=== PATIENT | female | born 1970 | race Caucasian/White ===

== ENCOUNTER → 2017-03-08 | Outpatient (CLI) | payer BC ==
--- NOTE | 2017-03-08 22:36 | XR ---
EXAMINATION TYPE: XR chest 2V DATE OF EXAM: 03/08/2017 5:15 PM COMPARISON: 03/27/2010 HISTORY: 47 year-old female shortness of breath for a couple weeks TECHNIQUE: Frontal and lateral views FINDINGS: The cardiomediastinal silhouette, aorta, and pulmonary vasculature are within normal limits. There is some strandy atelectasis at the left base. Otherwise, lungs and pleural spaces are clear. IMPRESSION: Some strandy atelectasis at the left base. Otherwise, no acute cardiopulmonary process.
== END | disposition home or self-care (01) ==
LOC: RADXRMAIN 17:06
PROVIDERS: ATTEND Family Medicine
DX: J98.11 Atelectasis (principal); R06.02 Shortness of breath
CPT/HCPCS: 71020

== ENCOUNTER 2017-03-11 18:38 | Observation (INO) | payer BC ==
[2017-03-11] MEDS ORDERED: NITROGLYCERIN OINT 1 INCH/GM PACKET TOPICAL STA (19:02)
[2017-03-11] MEDS ORDERED: RX INFO: IV CONTRAST WAS GIVEN 1 EACH MISC MISCELLANE PRN (19:02)
[2017-03-11] MEDS ORDERED: ASPIRIN 81 MG CHEW PO STA (19:02)
--- NOTE | 2017-03-11 19:05 | ED ---
General Adult HPI - General Chief complaint: Shortness of Breath Stated complaint: Dyspnea and chest Time Seen by Provider: 03/11/17 18:54 Source: patient, RN notes reviewed Mode of arrival: wheelchair Limitations: no limitations - History of Present Illness Initial comments: Patient is a pleasant 47-year-old female presenting to the emergency department complaining of chest discomfort. Onset was around 2:00. Discomfort has somewhat improved and is currently rated 5/10. Patient has been expressing exertional dyspnea somewhat progressive over the last several months. Patient is currently taking testosterone replacement. Patient did see her doctor Sunday and had a chest x-ray done. She was concerned about possible pulmonary embolism and ordered computed tomography scan that is scheduled for tomorrow. No leg pain or leg swelling. No nausea or diaphoresis. Discomfort is left upper chest with radiation towards the neck. - Related Data Home Medications Medication Instructions Recorded Confirmed Cyanocobalamin [Vitamin B-12 1,000 mcg SQ Q14D 03/11/17 03/11/17 Injection] Cyanocobalamin [Vitamin B-12] 500 mcg PO DAILY 03/11/17 03/11/17 Allergies Allergy/AdvReac Type Severity Reaction Status Date / Time propoxyphene napsylate Allergy Rash/Hives Verified 03/11/17 19:36 [From Jean] Review of Systems ROS Statement: Those systems with pertinent positive or pertinent negative responses have been documented in the HPI. ROS Other: All systems not noted in ROS Statement are negative. Constitutional: Denies: fever Eyes: Denies: eye pain ENT: Denies: ear pain Respiratory: Reports: dyspnea. Denies: cough Cardiovascular: Reports: chest pain Endocrine: Reports: fatigue Gastrointestinal: Denies: abdominal pain Genitourinary: Denies: dysuria Musculoskeletal: Denies: back pain Skin: Denies: rash Neurological: Denies: headache Past Medical History Past Medical History: Pulmonary Embolus (PE) Additional Past Medical History / Comment(s): migraines, hiatal hernia, hx ulcer , dx round worm 10/2014, diarrhea, polycystic kidney disease History of Any Multi-Drug Resistant Organisms: MRSA Date of last positivie culture/infection: 11/2012 MDRO Source:: leg Past Surgical History: Hernia Repair Additional Past Surgical History / Comment(s): admoninoplasty, left oophorectomy and salpingectomy, Past Anesthesia/Blood Transfusion Reactions: Family Hisory of Malignant Hyperthermia, Motion Sickness Additional Past Anesthesia/Blood Transfusion Reaction / Comment(s): father- malignant hyperthermia. pt states she was tested [place] but test was not conclusive. Past Psychological History: No Psychological Hx Reported Smoking Status: Never smoker Past Alcohol Use History: Occasional Past Drug Use History: None Reported General Exam Limitations: no limitations General appearance: alert, in no apparent distress Head exam: Present: atraumatic Eye exam: Present: normal appearance, PERRL ENT exam: Present: normal oropharynx Neck exam: Present: normal inspection Respiratory exam: Present: normal lung sounds bilaterally. Absent: chest wall tenderness Cardiovascular Exam: Present: regular rate, normal rhythm Expanded Peripheral pulses: 2+: Radial (R), Radial (L), Dorsalis Pedis (R), Dorsalis Pedis (L) GI/Abdominal exam: Present: soft. Absent: tenderness Extremities exam: Present: normal inspection. Absent: pedal edema, calf tenderness Neurological exam: Present: alert Psychiatric exam: Present: normal affect, normal mood Skin exam: Absent: rash Course Vital Signs 03/11/17 03/11/17 03/11/17 18:41 18:47 18:50 Temperature 98.7 F Pulse Rate 106 H 91 Respiratory 22 18 18 Rate Blood Pressure 179/88 141/63 O2 Sat by Pulse 99 100 Oximetry 03/11/17 03/11/17 19:50 20:20 Temperature Pulse Rate 94 82 Respiratory 18 18 Rate Blood Pressure 134/88 142/73 O2 Sat by Pulse 96 97 Oximetry EKG Findings - EKG Comments: EKG Findings:: Sinus tachycardia 101. ND 160. QRS 88. QT 350. QTC 453. Normal axis. Normal QRS. Normal ST-T. Medical Decision Making - Medical Decision Making Patient reevaluated and resting comfortably in bed. Patient updated on results and plan. Case was discussed in detail with practitioner Heidi ureña, who will admit for Dr. watkins, covering for Dr. alonzo, who admits for Dr. Loo. - Lab Data Result diagrams: 03/11/17 19:00 03/11/17 19:00 Lab Results 03/11/17 03/11/17 03/11/17 Range/Units 19:00 19:00 19:00 WBC 6.8 (3.8-10.6) k/uL RBC 4.90 (3.80-5.40) m/uL Hgb 14.0 (11.4-16.0) gm/dL Hct 43.5 (34.0-46.0) % MCV 88.7 (80.0-100.0) fL MCH 28.6 (25.0-35.0) pg MCHC 32.3 (31.0-37.0) g/dL RDW 14.4 (11.5-15.5) % Plt Count 291 (150-450) k/uL Neutrophils % 61 % Lymphocytes % 25 % Monocytes % 7 % Eosinophils % 3 % Basophils % 1 % Neutrophils # 4.1 (1.3-7.7) k/uL Lymphocytes # 1.7 (1.0-4.8) k/uL Monocytes # 0.5 (0-1.0) k/uL Eosinophils # 0.2 (0-0.7) k/uL Basophils # 0.1 (0-0.2) k/uL PT (9.0-12.0) sec INR (<1.1) APTT (22.0-30.0) sec Sodium 141 (137-145) mmol/L Potassium 4.0 (3.5-5.1) mmol/L Chloride 107 (98-107) mmol/L Carbon Dioxide 24 (22-30) mmol/L Anion Gap 10 mmol/L BUN 16 (7-17) mg/dL Creatinine 0.90 (0.52-1.04) mg/dL Est GFR (MDRD) Af Amer >60 (>60 ml/min/1.73 sqM) Est GFR (MDRD) Non-Af >60 (>60 ml/min/1.73 sqM) Glucose 91 (74-99) mg/dL Calcium 9.9 (8.4-10.2) mg/dL Magnesium 1.8 (1.6-2.3) mg/dL Total Bilirubin 0.2 (0.2-1.3) mg/dL AST 21 (14-36) U/L ALT 27 (9-52) U/L Alkaline Phosphatase 68 (38-126) U/L Total Creatine Kinase 88 (30-135) U/L CK-MB (CK-2) 0.7 (0.0-2.4) ng/mL CK-MB (CK-2) Rel Index 0.8 Troponin I <0.012 (0.000-0.034) ng/mL NT-Pro-B Natriuret Pep pg/mL Total Protein 7.3 (6.3-8.2) g/dL Albumin 4.2 (3.5-5.0) g/dL 03/11/17 03/11/17 Range/Units 19:00 19:00 WBC (3.8-10.6) k/uL RBC (3.80-5.40) m/uL Hgb (11.4-16.0) gm/dL Hct (34.0-46.0) % MCV (80.0-100.0) fL MCH (25.0-35.0) pg MCHC (31.0-37.0) g/dL RDW (11.5-15.5) % Plt Count (150-450) k/uL Neutrophils % % Lymphocytes % % Monocytes % % Eosinophils % % Basophils % % Neutrophils # (1.3-7.7) k/uL Lymphocytes # (1.0-4.8) k/uL Monocytes # (0-1.0) k/uL Eosinophils # (0-0.7) k/uL Basophils # (0-0.2) k/uL PT 10.1 (9.0-12.0) sec INR 1.0 (<1.1) APTT 24.6 (22.0-30.0) sec Sodium (137-145) mmol/L Potassium (3.5-5.1) mmol/L Chloride (98-107) mmol/L Carbon Dioxide (22-30) mmol/L Anion Gap mmol/L BUN (7-17) mg/dL Creatinine (0.52-1.04) mg/dL Est GFR (MDRD) Af Amer (>60 ml/min/1.73 sqM) Est GFR (MDRD) Non-Af (>60 ml/min/1.73 sqM) Glucose (74-99) mg/dL Calcium (8.4-10.2) mg/dL Magnesium (1.6-2.3) mg/dL Total Bilirubin (0.2-1.3) mg/dL AST (14-36) U/L ALT (9-52) U/L Alkaline Phosphatase (38-126) U/L Total Creatine Kinase (30-135) U/L CK-MB (CK-2) (0.0-2.4) ng/mL CK-MB (CK-2) Rel Index Troponin I (0.000-0.034) ng/mL NT-Pro-B Natriuret Pep <11 pg/mL Total Protein (6.3-8.2) g/dL Albumin (3.5-5.0) g/dL - Radiology Data Radiology results: report reviewed (Computed tomography scan shows no evidence of pulmonary embolism on a somewhat limited study.) Disposition Clinical Impression: Exertional dyspnea, Chest pain Disposition: ADMITTED IP TO THIS HOSP
[2017-03-11 19:19] LABS: Basophils # (A) 0.1 k/uL (0-0.2); Basophils % (A) 1 %; CH 28.6; CHCM 32.4; Eosinophils # (A) 0.2 k/uL (0-0.7); Eosinophils % (A) 3 %; HCT 43.5 % (34.0-46.0); HDW 2.47; Luc # (Auto) 0.17; Luc % (Auto) 3; Lymphocytes # (A) 1.7 k/uL (1.0-4.8); Lymphocytes % (A) 25 %; MCH 28.6 pg (25.0-35.0); MCHC 32.3 g/dL (31.0-37.0); MCV 88.7 fL (80.0-100.0); Mean Platelet Volume 6.8; Monocytes # (A) 0.5 k/uL (0-1.0); Monocytes % (A) 7 %; Neutrophils # (A) 4.1 k/uL (1.3-7.7); Neutrophils % (A) 61 %; RDW 14.4 % (11.5-15.5); WBC 6.8 k/uL (3.8-10.6); WBC (Perox) 6.75
[2017-03-11 19:30] LABS: ALT 27 U/L (9-52); AST 21 U/L (14-36); Alkaline Phosphatase 68 U/L (38-126); Anion Gap 10 mmol/L; Blood Urea Nitrogen 16 mg/dL (7-17); Calcium 9.9 mg/dL (8.4-10.2); Carbon Dioxide 24 mmol/L (22-30); Chloride 107 mmol/L (98-107); Glucose 91 mg/dL (74-99); Magnesium 1.8 mg/dL (1.6-2.3); Non-African American GFR(MDRD) >60 (>60 ml/min/1.73 sqM); Sodium 141 mmol/L (137-145); Total Bilirubin 0.2 mg/dL (0.2-1.3); Total Protein 7.3 g/dL (6.3-8.2)
[2017-03-11 19:46] LABS: Creatine Kinase 88 U/L (30-135)
[2017-03-11 20:00] LABS: Creatine Kinase MB 0.7 ng/mL (0.0-2.4); Partial Thromboplastin Time 24.6 sec (22.0-30.0); Prothrombin Time 10.1 sec (9.0-12.0); Troponin I <0.012 ng/mL (0.000-0.034)
--- NOTE | 2017-03-11 20:29 | CT ---
EXAMINATION TYPE: CT angio chest DATE OF EXAM: 03/11/2017 8:18 PM COMPARISON: NONE HISTORY: 47-year-old female with shortness of breath. TECHNIQUE: Contiguous axial scanning of the chest performed with IV Contrast, patient injected with 1 00 mL of Omnipaque 350. Coronal/sagittal MIP reconstructions performed. CT DLP: 595.50 mGycm Automated exposure control for dose reduction was used. FINDINGS: The heart is normal size with trace anterior pericardial fluid. Aorta is normal caliber with conventional arch vessel branching anatomy. No thoracic lymphadenopathy. There is somewhat suboptimal opacification of the pulmonary arterial system well without any visualiz ed pulmonary embolus. Evaluation of the lungs shows mild strandy dependent atelectasis. No consolidation or pleural effusio n. Visualized upper abdomen shows a subcentimeter hypodensity lateral left kidney too small for accurate CT characterization by was also present back in 2010 suggesting a cyst. Bones: No osseous destructive process. IMPRESSION: 1. SOMEWHAT LIMITED CONTRAST OPACIFICATION. NO CLEAR EVIDENCE FOR PULMONARY EMBOLUS. 2. NO ACUTE PULMONARY PROCESS.
[2017-03-11 21:49] VITALS: RESP 16
[2017-03-12] MEDS: NITROGLYCERIN OINT 1 INCH/GM PACKET TOPICAL SCH ×3 (00:03→14:17)
[2017-03-12 01:16] LABS: Creatine Kinase 76 U/L (30-135)
[2017-03-12 01:30] LABS: Creatine Kinase MB 0.6 ng/mL (0.0-2.4); Troponin I <0.012 ng/mL (0.000-0.034)
[2017-03-12 08:23] LABS: Cholesterol 195 mg/dL (<200); HDL Cholesterol 64 mg/dL (40-60); Triglycerides 111 mg/dL (<150)
--- NOTE | 2017-03-12 08:41 | P.CRDCN ---
History of Present Illness Consult date: 03/12/17 Chief complaint: Chest pressure History of present illness: This is a pleasant 47-year-old female patient with no significant past medical history presented to the emergency room complaining of chest discomfort. She describes 3 weeks history of intermittent chest discomfort and chest pain. Does not seems to be anginal. The cardiac enzymes came in to be unremarkable. The EKG showed sinus rhythm without any ischemic changes. The CTA of the chest did not show any evidence of PE. I recommended proceeding with a stress test and echocardiogram and follow-up with the patient. Past Medical History Past Medical History: Pulmonary Embolus (PE) Additional Past Medical History / Comment(s): migraines, hiatal hernia, hx ulcer , dx round worm 10/2014, diarrhea, polycystic kidney disease History of Any Multi-Drug Resistant Organisms: MRSA Date of last positivie culture/infection: 11/2012 MDRO Source:: leg Past Surgical History: Hernia Repair Additional Past Surgical History / Comment(s): admoninoplasty, left oophorectomy and salpingectomy, Past Anesthesia/Blood Transfusion Reactions: Family Hisory of Malignant Hyperthermia, Motion Sickness Additional Past Anesthesia/Blood Transfusion Reaction / Comment(s): father- malignant hyperthermia. pt states she was tested [place] but test was not conclusive. Past Psychological History: No Psychological Hx Reported Smoking Status: Never smoker Past Alcohol Use History: Occasional Past Drug Use History: None Reported - Past Family History Father Additional Family Medical History / Comment(s): cardiac cath with stents Mother Additional Family Medical History / Comment(s): ovarian cancer with hysto Sister(s) Family Medical History: No Reported History Medications and Allergies Home Medications Medication Instructions Recorded Confirmed Type Cyanocobalamin [Vitamin B-12 1,000 mcg SQ Q14D 03/11/17 03/11/17 History Injection] Cyanocobalamin [Vitamin B-12] 1,000 mcg PO DAILY 03/11/17 03/11/17 History Allergies Allergy/AdvReac Type Severity Reaction Status Date / Time propoxyphene napsylate Allergy Rash/Hives Verified 03/11/17 22:17 [From Shari-Anne] Physical Exam Vitals: Vital Signs Temp Pulse Pulse Resp BP BP Pulse Ox 03/12/17 08:35 95 03/12/17 07:26 98 F 80 16 103/66 96 03/12/17 04:00 16 03/12/17 03:52 98.3 F 80 16 107/63 96 03/12/17 00:00 16 03/11/17 23:40 97.8 F 69 16 118/70 95 03/11/17 22:44 16 03/11/17 21:40 98.2 F 76 16 133/76 97 03/11/17 21:33 97.0 F L 80 18 129/74 96 Intake and Output 03/11/17 03/12/17 03/12/17 22:59 06:59 14:59 Other: # Voids 1 1 - Constitutional General appearance: no acute distress - Respiratory Respiratory: bilateral: CTA - Cardiovascular Rhythm: regular Heart sounds: normal: S1, S2 Results 03/11/17 19:00 03/11/17 19:00 Cardiac Enzymes 03/12/17 Range/Units 00:26 CK-MB (CK-2) 0.6 (0.0-2.4) ng/mL Troponin I <0.012 (0.000-0.034) ng/mL Lipids 03/12/17 Range/Units 07:12 Triglycerides 111 (<150) mg/dL Cholesterol 195 (<200) mg/dL HDL Cholesterol 64 H (40-60) mg/dL Current Medications Generic Name Dose Route Start Last Admin Trade Name Brayanq PRN Reason Stop Dose Admin Aspirin 325 mg 03/12/17 09:00 Aspirin PO DAILY JOSUÉ Miscellaneous Information 1 each 03/11/17 19:02 Rx Info: Iv Contrast Was Given MISCELLANE 03/13/17 19:02 DAILY PRN Per Protocol Nitroglycerin 1 inch 03/12/17 00:00 03/12/17 05:50 Nitro-Bid Oint TOPICAL Not Given Q6HR JOSUÉ Sodium Chloride 10 ml 03/12/17 09:00 Saline Flush IV BID JOSUÉ Intake and Output 03/11/17 03/12/17 03/12/17 22:59 06:59 14:59 Other: # Voids 1 1 Assessment and Plan Plan: Assessment #1 chest discomfort Plan I'll proceed with an echocardiogram I will obtain a stress test as well
[2017-03-12 08:43] LABS: Creatine Kinase 69 U/L (30-135)
[2017-03-12 08:55] LABS: Creatine Kinase MB 0.5 ng/mL (0.0-2.4); Troponin I <0.012 ng/mL (0.000-0.034)
[2017-03-12] MEDS ORDERED: ASPIRIN 325 MG TAB PO SCH (09:00)
[2017-03-12] MEDS ORDERED: ACETAMINOPHEN TAB 325 MG TAB PO PRN (11:31)
[2017-03-12 11:49] VITALS: BP 117/65; PULSE 84; TEMP 99
--- NOTE | 2017-03-12 11:59 | ECHOF ---
Referral Reason:Exertional dyspnea MEASUREMENTS -------- HEIGHT: 167.6 cm WEIGHT: 86.2 kg BP: 117/50 RVIDd: 3.3 cm (< 3.3) IVSd: 0.9 cm (0.6 - 1.1) LVIDd: 3.6 cm (3.9 - 5.3) LVPWd: 1.0 cm (0.6 - 1.1) IVSs: 1.5 cm LVIDs: 2.0 cm LVPWs: 1.6 cm LA Diam: 2.8 cm (2.7 - 3.8) Ao Diam: 2.7 cm (2.0 - 3.7) AV Cusp: 2.0 cm (1.5 - 2.6) MV EXCURSION: 14.664 mm (> 18.000) MV EF SLOPE: 70 mm/s (70 - 150) EPSS: 0.7 cm MV E Varghese: 0.77 m/s MV DecT: 305 ms MV A Varghese: 0.64 m/s MV E/A Ratio: 1.20 RAP: 5.00 mmHg RVSP: 23.73 mmHg FINDINGS -------- Sinus rhythm. This was a technically good study. The left ventricular size is normal. Left ventricular wall thickness is normal. Overall left ventricular systolic function is normal with, an EF between 60 - 65 %. The right ventricle is mildly enlarged. The left atrium is normal in size. The right atrium is normal in size. The aortic valve is trileaflet and appears structurally normal. The mitral valve is normal. Mild tricuspid regurgitation present. Right ventricular systolic pressure is normal at < 35 mmHg. The pulmonic valve is normal. The aortic root size is normal. The pericardium is normal. CONCLUSIONS -------- 1. Sinus rhythm. 2. The mitral valve is normal. 3. Mild tricuspid regurgitation present. 4. Right ventricular systolic pressure is normal at < 35 mmHg. 5. The pulmonic valve is normal. 6. The aortic root size is normal. 7. The pericardium is normal. 8. This was a technically good study. 9. The left ventricular size is normal. 10. Left ventricular wall thickness is normal. 11. Overall left ventricular systolic function is normal with, an EF between 60 - 65 %. 12. The right ventricle is mildly enlarged. 13. The left atrium is normal in size. 14. The right atrium is normal in size. 15. The aortic valve is trileaflet and appears structurally normal. DIVERSIONAL THERAPIST: Taylor Osman RDCS
--- NOTE | 2017-03-12 12:19 | ECHOS ---
DATE OF SERVICE: 03/12/2017 AGE: 47Y SEX: F HT: 67" WT: 194 lbs. Protocol Matheus: X Others: Stress Echo Stage: 3 Dur. of Exercise: 8:00 *Heart Rate Blood Pressure *Rest: 89 Rest: 117/50 * *Max. Achieved: 154 Maximum BP: 213/94 85% PMHR: 148 100% PMHR: 174 *METS: 10.1 INDICATIONS: Chest pain. MEDICATIONS: - Baseline EKG revealed normal sinus rhythm without significant ST-T changes. There was some baseline artifact on the initial EKG. Patient walked on a standard Matheus protocol for 8 minutes, achieved a maximum heart rate of 154 beats, which is more than 85% of predicted maximal. She developed some fatigue and shortness of breath, but did not have any angina or arrhythmia. EKG revealed upsloping ST segment changes, which are equivocal for ischemia. There was no subjective symptoms of angina. There was no arrhythmia. By EKG criteria, this is equivocal stress test with fair exercise capacity and patient achieved a heart rate of more than 85% of predicted maximal. Baseline echo images reveal normal wall motion and wall thickening of all segments. At peak exercise, there was good augmentation of left ventricular wall motion and wall thickening of all segments suggesting that there is no evidence of any stress-induced ischemia on this study. FINAL IMPRESSION: 1. Fair exercise capacity with equivocal stress test by EKG criteria with upsloping nonspecific ST segment changes. 2. Normal stress echocardiogram. There is no evidence of any ischemia on this stress echocardiogram study.
--- NOTE | 2017-03-12 13:44 | NM ---
EXAMINATION TYPE: NM pul vent and perfuse DATE OF EXAM: 03/12/2017 1:41 PM COMPARISON: Attempted CTA chest one day ago. HISTORY: Shortness of breath and chest pain TECHNIQUE: Utilizing inhalation of 69.1 mCi Tc 99m DTPA aerosol and intravenous injection of 5.31 mC i of Tc 99m MAA, ventilation and perfusion images are acquired post injection in multiple projections . FINDINGS: Normal radiotracer distribution is noted in the lungs. There is no evidence of mismatched defects. IMPRESSION: Low probability for pulmonary embolism.
--- NOTE | 2017-03-12 16:41 | P.CNPUL ---
History of Present Illness Consult date: 03/12/17 Requesting physician: Eric Chaparro Reason for consult: chest pain Chief complaint: Chest pain and some shortness of breath. History of present illness: This is a 47-year-old female with no significant medical history except for remote history of pulmonary embolism, patient presented to the ER with 3 weeks history of intermittent chest discomfort and chest pain. Describes the pain as in the upper chest radiating to the neck area, some shortness of breath on exertion was also described. No fever no chills no cough no wheezing no nausea no vomiting no abdominal pain and no symptoms of GERD. Patient had a CT of the chest which was suboptimal, however there was no evidence of pulmonary embolism. And no evidence of active lung disease. Patient was recently seen by her primary care physician, and apparently a chest x-ray done in our office showed some abnormality described to the patient in the left lower lobe, but I reviewed the CT of the chest myself, and I did not find any abnormality. Granted patient was still concerned about the pulmonary embolism issue in spite of the fact that her CT of the chest was negative but again it was suboptimal. I ordered a d-dimer which came back negative, at the same time a VQ scan came back low probability for pulmonary embolism. Considering the findings, I believe that pulmonary embolism and thromboembolic disease was ruled out with 100% certainty. Hence I believe the pain is either cardiac or atypical in nature, and the patient was seen by cardiology stress test and echocardiogram were ordered. Results of which are pending. Review of Systems 14 point review of systems were obtained, please refer to pertinent positives and negatives in HPI. Past Medical History Past Medical History: Pulmonary Embolus (PE) Additional Past Medical History / Comment(s): migraines, hiatal hernia, hx ulcer , dx round worm 10/2014, diarrhea, polycystic kidney disease History of Any Multi-Drug Resistant Organisms: MRSA Date of last positivie culture/infection: 11/2012 MDRO Source:: leg Past Surgical History: Hernia Repair Additional Past Surgical History / Comment(s): admoninoplasty, left oophorectomy and salpingectomy, Past Anesthesia/Blood Transfusion Reactions: Family Hisory of Malignant Hyperthermia, Motion Sickness Additional Past Anesthesia/Blood Transfusion Reaction / Comment(s): father- malignant hyperthermia. pt states she was [place] but test was not conclusive. Past Psychological History: No Psychological Hx Reported Smoking Status: Never smoker Past Alcohol Use History: Occasional Past Drug Use History: None Reported - Past Family History Father Additional Family Medical History / Comment(s): cardiac cath with stents Mother Additional Family Medical History / Comment(s): ovarian cancer with hysto Sister(s) Family Medical History: No Reported History Medications and Allergies Home Medications Medication Instructions Recorded Confirmed Type Cyanocobalamin [Vitamin B-12 1,000 mcg SQ Q14D 03/11/17 03/11/17 History Injection] Cyanocobalamin [Vitamin B-12] 1,000 mcg PO DAILY 03/11/17 03/11/17 History Allergies Allergy/AdvReac Type Severity Reaction Status Date / Time propoxyphene napsylate Allergy Rash/Hives Verified 03/11/17 22:17 [From ShariAnne] Physical Exam Vitals: Vital Signs Temp Pulse Pulse Resp BP BP Pulse Ox 03/12/17 12:00 84 16 03/12/17 11:47 99 F 84 16 117/65 96 03/12/17 08:35 95 03/12/17 08:00 80 16 03/12/17 07:26 98 F 80 16 103/66 96 03/12/17 04:00 16 03/12/17 03:52 98.3 F 80 16 107/63 96 03/12/17 00:00 16 03/11/17 23:40 97.8 F 69 16 118/70 95 03/11/17 22:44 16 03/11/17 21:40 98.2 F 76 16 133/76 97 03/11/17 21:33 97.0 F L 80 18 129/74 96 Intake and Output 03/12/17 03/12/17 03/12/17 06:59 14:59 22:59 Intake Total 236 Balance 236 Intake: Oral 236 Other: # Voids 1 2 Physical Exam: Revealed a 47-year-old female in no distress. HEENT:[Neck is supple.] [No neck masses.] [No thyromegaly.] [No JVD.] Chest: [Clear throughout, no crackles, no rhonchi, no wheezes.] Tenderness over the chest wall was noted. Cardiac Exam: [Normal S1 and S2, no S3 gallop, no murmur.] Abdomen: [Soft, nontender, no megaly, no rebound, no guarding, normal bowel sounds.] Extremities: [No clubbing, no edema, no cyanosis.] Neurological Exam: [No focal neurologic deficit.] Results - Laboratory Findings CBC and BMP: 03/11/17 19:00 03/11/17 19:00 PT/INR, D-dimer PT 10.1 sec (9.0-12.0) 03/11/17 19:00 INR 1.0 (<1.1) 03/11/17 19:00 D-Dimer 0.29 mg/L FEU (<0.60) 03/12/17 12:05 Abnormal lab findings: Abnormal Labs 03/12/17 07:12 LDL Cholesterol, Calc 109 H HDL Cholesterol 64 H - Diagnostic Findings Chest x-ray: image reviewed CT scan - chest: image reviewed Assessment and Plan Plan: Impression: 1 atypical chest pain, not pulmonary in nature considering the patient had a normal CT of the chest, normal d-dimer, and a relatively normal VQ scan. Recommendation: Patient was reassured, and if cleared by cardiology for discharge planning, that would be fine otherwise the patient may need to have further cardiac workup. Follow-up on outpatient basis as needed. Time with Patient: Greater than 30
--- NOTE | 2017-03-13 07:10 | HP ---
DATE OF ADMISSION: This dictation is both H&P and discharge summary. Patient is a 47-year-old female with remote history of pulmonary embolism, came to ER with complaint of worsening shortness of breath over time. Denied any orthopnea, paroxysmal nocturnal dyspnea. Denied any fever or chills. Patient was also complaining of chest pain, nonpleuritic in nature, not associated with food, noncardiac in nature, nonexertional. Pain is mostly in the back of the chest and patient underwent stress test, which negative. Patient's pain completely resolved at this point of time. Pain appears to be mostly musculoskeletal. Patient still has gallbladder, but her pain is not related to food. Patient does not have any other GI symptoms. Patient underwent VQ scan, which showed very low probability for pulmonary embolism. CT scan of the chest was also done which did not show any significant abnormality. D-dimer is also negative. Unsure of the etiology of her shortness of breath and also chest pain, although pulmonary embolism, pneumonia are all ruled out and patient was asked to follow primary care and patient is being discharged today. REVIEW OF SYSTEMS: CONSTITUTIONAL: No fever, no malaise, no fatigue. HEENT: No recent visual problems or hearing problems. Denied any sore throat. CARDIOVASCULAR: As described in HPI. PULMONARY: As described in HPI. GASTROINTESTINAL: No diarrhea, no nausea, no vomiting, no abdominal pain. Normoactive bowel sounds. NEUROLOGICAL: No headaches, no weakness, no numbness. HEMATOLOGICAL: Denies any bleeding or petechiae. GENITOURINARY: Denies any burning micturition, frequency, or urgency. MUSCULOSKELETAL/RHEUMATOLOGICAL: Denies any joint pain, swelling, or any muscle pain. ENDOCRINE: Denies any polyuria or polydipsia. The rest of the 14 point review of systems is negative. PAST MEDICAL HISTORY: Significant for pulmonary embolism, migraine, polycystic kidney disease, MRSA in the past, hernia repair, abdominoplasty, left ( ), left salpingo-oophorectomy. SOCIAL HISTORY: Denied any smoking, alcohol abuse or drug abuse. FAMILY HISTORY: Father had cardiac catheterization with stent in the past. Mother had ovarian cancer, hysterectomy. HOME MEDICATIONS: Cyanocobalamin. ALLERGIES: ALLERGIC TO PROPOXYPHENE. PHYSICAL EXAMINATION: VITAL SIGNS: Temperature 99.0, pulse of 74, respirations 16, blood pressure 170/65, saturating at 96% on room air. GENERAL: The patient is alert and oriented x3, not in any acute distress. Well developed, well nourished. HEENT: Pupils are round and equally reacting to light. EOMI. No scleral icterus. No conjunctival pallor. Normocephalic, atraumatic. No pharyngeal erythema. No thyromegaly. CARDIOVASCULAR: S1 and S2 present. No murmurs, rubs, or gallops. PULMONARY: Chest is clear to auscultation, no wheezing or crackles. ABDOMEN: Soft, nontender, nondistended, normoactive bowel sounds. No palpable organomegaly. MUSCULOSKELETAL: No joint swelling or deformity. EXTREMITIES: No cyanosis, clubbing, or pedal edema. NEUROLOGICAL: Gross neurological examination did not reveal any focal deficits. SKIN: No rashes. LABORATORY DATA: CBC and CMP essentially within normal limits. Chest x-ray, CT of the chest, all the work-up is negative. ASSESSMENT AND PLAN: 1. Chest pain atypical. Underwent stress test which was negative. 2. Shortness of breath, unsure of the etiology. All workup so far is negative and patient is feeling better today and wanted to be discharged. Patient will be discharged today. Follow with her primary care physician. Ruled out pulmonary embolism, ruled out acute coronary artery syndrome and unstable angina. Follow with her PCP in 3 to 7 days. Activity as tolerated. Patient will follow with Dr. Gonzales in 2 weeks. Her PCP is Dr. Renny Loo. This dictation is both H&P and discharge summary.
== END 2017-03-12 15:54 | disposition home or self-care (01) ==
LOC: EC 18:38 → 3SUR 21:04 → 3OBS 03-12 09:33
PROVIDERS: ADMIT Internal Medicine; ATTEND Internal Medicine
DX: R07.89 Other chest pain (principal); R06.02 Shortness of breath; Z88.5 Allergy status to narcotic agent; Z86.711 Personal history of pulmonary embolism; Z86.14 Personal history of Methicillin resistant Staphylococcus aureus infection
CPT/HCPCS: 99285; 36415; 93005; 93017; 93306; 93350; 85379; 83880; 80061; 80053; 82550 ×2; 82553 ×2; 83735; 84484 ×2; 85025; 85610; 85730; 71275; 78582; G0378 ×3; A9540; A9567; Q9967

== ENCOUNTER → 2017-07-31 | Outpatient (CLI) | payer OTHER ==
[2017-07-31 09:40] LABS: Basophils # (A) 0.1 k/uL (0-0.2); Basophils % (A) 1 %; CH 28.5; CHCM 30.7; Eosinophils # (A) 0.2 k/uL (0-0.7); Eosinophils % (A) 5 %; HCT 45.9 % (34.0-46.0); HDW 2.54; HGB 14.8 gm/dL (11.4-16.0); Hypochromasia Moderate; Luc % (Auto) 2; Lymphocytes % (A) 22 %; MCHC 32.1 g/dL (31.0-37.0); MCV 93.4 fL (80.0-100.0); Mean Platelet Volume 6.8; Monocytes # (A) 0.4 k/uL (0-1.0); Monocytes % (A) 9 %; Neutrophils # (A) 2.9 k/uL (1.3-7.7); Neutrophils % (A) 61 %; RBC 4.92 m/uL (3.80-5.40); WBC 4.7 k/uL (3.8-10.6); WBC (Perox) 4.86
== END | disposition home or self-care (01) ==
LOC: LABPAT 08:43
PROVIDERS: ATTEND Obstetrics & Gynecology
DX: Z01.812 Encounter for preprocedural laboratory examination (principal); N92.0 Excessive and frequent menstruation with regular cycle
CPT/HCPCS: 85025

== ENCOUNTER 2017-08-06 07:47 | Day surgery (SDC) | payer OTHER ==
[~2017-08-06 07:47] MED LIST: DEXAMETHASONE SOD PHOSPHATE 10 MG/ML 1 ML VIAL IV ONE; HYDROmorphone 1 MG/ML 1 ML SYRINGE IVP PRN; LACTATED RINGERS 1,000 ML IV SCH; LIDOCAINE 1% 20 ML VIAL (10MG/ML) FOR IV START INTRADERMA PRN; MIDAZOLAM 2 MG/2 ML VIAL IV PRN; ONDANSETRON 4 MG/2 ML VIAL IVP ONE; Pre Op ABX Message 1 EACH MISC MISCELLANE ONE; SCOPOLAMINE 1.5MG/72HR PATCH TRANSDERM ONE
[2017-08-06 08:06] VITALS: TEMP 98
[2017-08-06] MEDS ORDERED: LACTATED RINGERS 1,000 ML IV ONE (08:08)
[2017-08-06] MEDS ORDERED: LIDOCAINE 1% INJ 10MG/ML (20 ML MDV) ONE (09:16)
[2017-08-06] MEDS ORDERED: fentaNYL (PF) 50 MCG/ML 2 ML AMP ONE (09:16)
[2017-08-06] MEDS ORDERED: MIDAZOLAM 2 MG/2 ML VIAL ONE (09:16)
[2017-08-06] MEDS ORDERED: KETOROLAC 30 MG/ML 1 ML VIAL ONE (09:16)
[2017-08-06] MEDS ORDERED: PROPOFOL 10 MG/ML 20 ML VIAL IV ONE (09:16)
[2017-08-06] MEDS ORDERED: KETAMINE 10 MG/ML 20 ML VIAL ONE (09:16)
[2017-08-06] MEDS ORDERED: BUPIVACAINE-EPI 0.5%-1:200,000 10 ML VIAL SQ ONE (09:30)
--- NOTE | 2017-08-06 09:42 | P.OP ---
Date of Procedure: 08/06/17 Preoperative Diagnosis: Menorrhagia Postoperative Diagnosis: Same Procedure(s) Performed: Diagnostic hysteroscopy and NovaSure endometrial ablation Anesthesia: MAC Surgeon: Elma Fraga Estimated Blood Loss (ml): 5 IV fluids (ml): 700 Urine output (ml): 25 Pathology: none sent Condition: stable Disposition: PACU Operative Findings: Slightly enlarged uterus with normal-appearing endometrial cavity without any gross intracavitary lesions appreciated. Description of Procedure: After the patient was met in the preoperative holding area and all questions were answered, she is to the operating room where anesthetic was administered without incident. She was in positioned, prepped and draped in the dorsal lithotomy position. Bladder was drained for approximately 25 mL of clear urine. Single-sided speculum was placed in the vagina and the cervix was grasped anteriorly with a single-tooth tenaculum. Paracervical block with lidocaine plus epinephrine was placed. The uterus is sounded to 10 cm. The cervix was sequentially dilated to allow for passage of the diagnostic hysteroscope. The hysteroscope was introduced and the above findings were noted. The hysteroscope was removed and the cervix was further dilated to allow for passage of the NovaSure ablation device. The device was inserted with a cavity length of 6.0 cm and a width of 4.0 cm. Cavity assessment was passed and the treatment cycle was initiated. Power was 132 W for a time of 65 seconds. Following cessation of the treatment cycle the device was removed and the hysteroscope was reintroduced. Complete desiccation of the cavity was appreciated. Hysteroscope was removed. Tenaculum was removed. Silver nitrate was applied to the tenaculum sites for hemostasis. The hemostasis was then noted. Instruments removed from the vagina. The patient was awoken from anesthetic and transported to recovery area in stable condition. All counts reported to me as correct.
[2017-08-06 10:45] VITALS: RESP 18
[2017-08-06] MEDS ORDERED: IBUPROFEN 200 MG TAB PO ONE (10:47)
[2017-08-06 11:49] VITALS: BP 112/76; PULSE 76
== END 2017-08-06 11:59 | disposition home or self-care (01) ==
LOC: OR 07:47
PROVIDERS: ATTEND Obstetrics & Gynecology
DX: N92.0 Excessive and frequent menstruation with regular cycle (principal); Z79.890 Hormone replacement therapy; Z84.89 Family history of other specified conditions; Z88.5 Allergy status to narcotic agent
CPT/HCPCS: 81025; 58563; J2250; J1100; J2405; J2001; J3010; J1885; J2704

== ENCOUNTER → 2017-09-25 | Outpatient (CLI) | payer OTHER ==
--- NOTE | 2017-09-26 09:29 | MM ---
Reason for exam: screening (asymptomatic). Last mammogram was performed 1 year ago. History: Patient has history of high-risk lesion on a previous biopsy at age 43. Family history of breast cancer in paternal aunt at age 50. Benign right breast needle localzation of both breasts, October 01, 2013. High risk right mammotome panel of the right breast, September 19, 2013. Took hormonal contraceptives for 2 years beginning at age 18. Physical Findings: A clinical breast exam by your physician is recommended on an annual basis and results should be correlated with mammographic findings. MG 3D Screening Mammo W/Cad Bilateral CC and MLO view(s) were taken. Prior study comparison: September 21, 2016, right breast MG 3d work up w/cad RT. September 18, 2016, bilateral MG 3d screening mammo w/cad. The breast tissue is heterogeneously dense. This may lower the sensitivity of mammography. Finding #1: There are typically benign calcifications in both breasts. Finding #2: There is a less than 10 mm obscured oval mass in the right breast. ASSESSMENT: Incomplete: need additional imaging evaluation, BI-RAD 0 RECOMMENDATION: Special view mammogram and ultrasound of the right breast. [facility] will attempt to contact patient to return for supplemental views and ultrasound.
== END | disposition home or self-care (01) ==
LOC: RADMAMWWP 07:15
PROVIDERS: ATTEND Obstetrics & Gynecology
DX: Z12.31 Encounter for screening mammogram for malignant neoplasm of breast (principal)
CPT/HCPCS: 77063; G0202

== ENCOUNTER → 2017-10-03 | Outpatient (CLI) | payer OTHER ==
--- NOTE | 2017-10-03 09:45 | MM ---
Reason for exam: additional evaluation requested from abnormal screening. Last mammogram was performed less than 1 month ago. History: Patient has history of high-risk lesion on a previous biopsy at age 43. Family history of breast cancer in paternal aunt at age 50. Benign right breast needle localzation of both breasts, October 01, 2013. High risk right mammotome panel of the right breast, September 19, 2013. Took hormonal contraceptives for 2 years beginning at age 18. Physical Findings: Nurse did not find any significant physical abnormalities on exam. MG 3D Work Up W/Cad RT ML, spot compression CC, and spot compression MLO view(s) were taken of the right breast. Prior study comparison: September 25, 2017, bilateral MG 3d screening mammo w/cad. September 21, 2016, right breast MG 3d work up w/cad RT. September 18, 2016, bilateral MG 3d screening mammo w/cad. The breast tissue is heterogeneously dense. This may lower the sensitivity of mammography. Previously seen abnormality is stable back to 2013 and correlates to a benign sonographic cyst. These results were verbally communicated with the patient and result sheet given to the patient on 10/03/17. ASSESSMENT: Benign, BI-RAD 2 RECOMMENDATION: Routine screening mammogram of both breasts in 1 year.
--- NOTE | 2017-10-03 10:03 | USB ---
Reason for exam: additional evaluation requested from abnormal screening. History: Patient has history of high-risk lesion on a previous biopsy at age 43. Family history of breast cancer in paternal aunt at age 50. Benign right breast needle localzation of both breasts, October 01, 2013. High risk right mammotome panel of the right breast, September 19, 2013. Took hormonal contraceptives for 2 years beginning at age 18. US Breast Workup Limited RT Right breast ultrasound demonstrates a 1.4 x 1.1 x 0.5cm cystic with debris lesion at 9 o'clock, complicated cyst with increasing through transmission, compressible. These results were verbally communicated with the patient and result sheet given to the patient on 10/03/17. ASSESSMENT: Benign, BI-RAD 2 RECOMMENDATION: Routine screening mammogram of both breasts in 1 year.
== END | disposition home or self-care (01) ==
LOC: RADMAMWWP 07:32
PROVIDERS: ATTEND Obstetrics & Gynecology
DX: R92.8 Other abnormal and inconclusive findings on diagnostic imaging of breast (principal)
CPT/HCPCS: 76642; G0206; G0279

== ENCOUNTER → 2018-03-04 | Outpatient (CLI) | payer OTHER ==
[2018-03-04 14:02] LABS: HCT 43.8 % (34.0-46.0); HGB 14.5 gm/dL (11.4-16.0); MCH 29.9 pg (25.0-35.0); MCHC 33.2 g/dL (31.0-37.0); Mean Platelet Volume 6.9; Platelet Count 229 k/uL (150-450); RBC 4.86 m/uL (3.80-5.40); RDW 13.3 % (11.5-15.5); WBC 4.3 k/uL (3.8-10.6)
[2018-03-04 14:23] LABS: ALT 28 U/L (9-52); AST 22 U/L (14-36); Alkaline Phosphatase 54 U/L (38-126); Anion Gap 14 mmol/L; Blood Urea Nitrogen 12 mg/dL (7-17); Carbon Dioxide 25 mmol/L (22-30); Chloride 104 mmol/L (98-107); Glucose 89 mg/dL (74-99); Potassium 4.1 mmol/L (3.5-5.1); Sodium 143 mmol/L (137-145); Total Bilirubin 0.5 mg/dL (0.2-1.3); Total Protein 6.6 g/dL (6.3-8.2)
[2018-03-04 14:38] LABS: T4, Free (Free Thyroxine) 0.87 ng/dL (0.78-2.19)
[2018-03-04 19:23] LABS: Vitamin D 25 Hydroxy 24.3 ng/mL (30.0-100.0)
== END | disposition home or self-care (01) ==
LOC: LABWHC1 13:24
PROVIDERS: ATTEND Obstetrics & Gynecology
DX: R53.83 Other fatigue (principal); L70.9 Acne, unspecified; Z78.0 Asymptomatic menopausal state
CPT/HCPCS: 36415; 80053; 82306; 82607; 82670; 83001; 84403; 84439; 84443; 85027

== ENCOUNTER → 2018-08-20 | Outpatient (CLI) | payer MEDICARE | END | disposition home or self-care (01) | LOC: LABWHC1 08:58 | PROVIDERS: ATTEND Obstetrics & Gynecology | DX: N95.1 Menopausal and female climacteric states (principal); Z79.890 Hormone replacement therapy | CPT/HCPCS: 36415; 82670; 83001; 84403 ==

== ENCOUNTER → 2018-12-11 | Outpatient (CLI) | payer MEDICARE ==
--- NOTE | 2018-12-13 09:15 | MM ---
Reason for exam: screening (asymptomatic). Last mammogram was performed 1 year and 2 months ago. History: Patient has history of high-risk lesion on a previous biopsy at age 43. Family history of breast cancer in paternal aunt at age 50. Benign right breast needle localzation of both breasts, October 01, 2013. High risk right mammotome panel of the right breast, September 19, 2013. Took hormonal contraceptives for 2 years beginning at age 18. Physical Findings: A clinical breast exam by your physician is recommended on an annual basis and results should be correlated with mammographic findings. MG 3D Screening Mammo W/Cad Bilateral CC and MLO view(s) were taken. Prior study comparison: October 03, 2017, right breast MG 3d work up w/cad RT. September 25, 2017, bilateral MG 3d screening mammo w/cad. The breast tissue is heterogeneously dense. This may lower the sensitivity of mammography. There is chronic nodularity in the left breast. No significant changes when compared with prior studies. ASSESSMENT: Benign, BI-RAD 2 RECOMMENDATION: Routine screening mammogram of both breasts in 1 year.
== END | disposition home or self-care (01) ==
LOC: RADMAMWWP 12:52
PROVIDERS: ATTEND Obstetrics & Gynecology
DX: Z12.31 Encounter for screening mammogram for malignant neoplasm of breast (principal)
CPT/HCPCS: 77063; 77067

== ENCOUNTER → 2019-12-23 | Outpatient (CLI) | payer BC ==
[2019-12-23 08:07] LABS: HCT 48.3 % (34.0-46.0); HGB 15.6 gm/dL (11.4-16.0); MCH 30.2 pg (25.0-35.0); MCHC 32.3 g/dL (31.0-37.0); MCV 93.6 fL (80.0-100.0); Mean Platelet Volume 7.5; Platelet Count 275 k/uL (150-450); RBC 5.16 m/uL (3.80-5.40); RDW 12.8 % (11.5-15.5); WBC 4.8 k/uL (3.8-10.6)
--- NOTE | 2019-12-23 10:41 | MM ---
Reason for exam: screening (asymptomatic). Last mammogram was performed 1 year ago. History: Patient has history of high-risk lesion on a previous biopsy at age 43. Family history of breast cancer in paternal aunt at age 50. Benign right breast needle localzation of both breasts, October 01, 2013. High risk right mammotome panel of the right breast, September 19, 2013. Took hormonal contraceptives for 2 years beginning at age 18. Taking progesterone for 1 year. Taking other hormone for 4 years. Physical Findings: A clinical breast exam by your physician is recommended on an annual basis and results should be correlated with mammographic findings. MG 3D Screening Mammo W/Cad Bilateral CC and MLO view(s) were taken. Prior study comparison: December 11, 2018, bilateral MG 3d screening mammo w/cad. October 03, 2017, right breast MG 3d work up w/cad RT. The breast tissue is heterogeneously dense. This may lower the sensitivity of mammography. Stable benign calcifications. There is chronic nodularity bilaterally. There is no dominant lesion. No significant changes when compared with prior studies. ASSESSMENT: Benign, BI-RAD 2 RECOMMENDATION: Routine screening mammogram of both breasts in 1 year.
[2019-12-23 11:33] LABS: Estradiol 82.8 pg/mL
== END | disposition home or self-care (01) ==
LOC: RADMAMWWP 07:12
PROVIDERS: ATTEND Obstetrics & Gynecology
DX: Z12.31 Encounter for screening mammogram for malignant neoplasm of breast (principal); R53.83 Other fatigue; E83.40 Disorders of magnesium metabolism, unspecified; N95.9 Unspecified menopausal and perimenopausal disorder; N95.2 Postmenopausal atrophic vaginitis
CPT/HCPCS: 36415; 77063; 77067; 82670; 83001; 84144; 84402; 84403; 85027

== ENCOUNTER → 2021-01-24 | Outpatient (CLI) | payer BC ==
--- NOTE | 2021-01-26 09:37 | MM ---
Reason for exam: screening (asymptomatic). Last mammogram was performed 1 year and 1 month ago. History: Patient has history of high-risk lesion on a previous biopsy at age 43. Family history of breast cancer in paternal aunt at age 50. Benign right breast needle localzation of both breasts, October 01, 2013. High risk right mammotome panel of the right breast, September 19, 2013. Took hormonal contraceptives for 2 years beginning at age 18. Taking progesterone for 1 year. Taking other hormone for 4 years. Physical Findings: A clinical breast exam by your physician is recommended on an annual basis and results should be correlated with mammographic findings. MG 3D Screening Mammo W/Cad Bilateral CC and MLO view(s) were taken. Prior study comparison: December 23, 2019, bilateral MG 3d screening mammo w/cad. December 11, 2018, bilateral MG 3d screening mammo w/cad. The breast tissue is heterogeneously dense. This may lower the sensitivity of mammography. Previous mammotome biopsy in the right breast. There is chronic nodularity in the right breast. No significant changes when compared with prior studies. ASSESSMENT: Benign, BI-RAD 2 RECOMMENDATION: Routine screening mammogram of both breasts in 1 year.
== END ==
LOC: RADMAMWWP 07:52
PROVIDERS: ATTEND Obstetrics & Gynecology
DX: Z12.31 Encounter for screening mammogram for malignant neoplasm of breast (principal); Z80.3 Family history of malignant neoplasm of breast
CPT/HCPCS: 77063; 77067

== ENCOUNTER → 2021-10-03 | Outpatient (CLI) | payer BC ==
--- NOTE | 2021-10-03 14:13 | CT ---
EXAMINATION TYPE: CT abdomen pelvis w con DATE OF EXAM: 10/03/2021 HISTORY: Right lower quadrant pain on and off x [address] DLP: 1626mGycm Automated Exposure Control for Dose Reduction was Utilized. CONTRAST: CT scan of the abdomen and pelvis is performed with IV Contrast, patient injected with 100 mL of Isov ue M300. COMPARISON: CT abdomen and pelvis July 28, 2016 FINDINGS: LUNG BASES: No significant abnormality is appreciated. LIVER/GB: No significant abnormality is appreciated. PANCREAS: No significant abnormality is seen. SPLEEN: No significant abnormality is seen. ADRENALS: No significant abnormality is seen. KIDNEYS: Several scattered small thin-walled cysts throughout both kidneys are present seen better on current study. BOWEL: Oral contrast reaches the right colon. No suspicious small or large bowel dilatation. Normal-a ppearing appendix from the cecum in the right lower quadrant. Terminal ileum appears within normal li mits coronal image 32. UTERUS/ADNEXA: Anteverted uterus projects to left of midline. Slight asymmetric prominence to right o vary without obvious concerning focal solid or cystic mass. Scattered bilateral pelvic phleboliths. N o free fluid. LYMPH NODES: No greater than 1cm abdominal or pelvic lymph nodes are appreciated. OSSEOUS STRUCTURES: No significant abnormality is seen. OTHER: Small fat-containing paraumbilical hernia on axial image 54 is redemonstrated. IMPRESSION: No CT evidence for acute appendicitis. No new or acute findings identified
== END | disposition home or self-care (01) ==
LOC: RADCTMAIN 12:01
PROVIDERS: ATTEND Surgery
DX: R10.31 Right lower quadrant pain (principal)
CPT/HCPCS: 74177; Q9967 ×2

== ENCOUNTER → 2022-01-12 | Outpatient (CLI) | payer BC ==
[2022-01-12 15:01] LABS: Basophils # (A) 0.03 X 10*3/uL (0.00-0.10); Basophils % (A) 0.8 %; Eosinophils # (A) 0.15 X 10*3/uL (0.04-0.35); Eosinophils % (A) 3.8 %; HCT 46.6 % (37.2-46.3); HGB 15.2 g/dL (12.0-15.0); Immature Grans, Automated 0 %; Lymphocytes # (A) 1.32 X 10*3/uL (0.90-5.00); Lymphocytes % (A) 33.1 %; MCH 29.6 pg (27.0-32.0); MCHC 32.6 g/dL (32.0-37.0); MCV 90.7 fL (80.0-97.0); Monocytes # (A) 0.41 X 10*3/uL (0.20-1.00); Monocytes % (A) 10.3 %; NRBC Per 100 WBC 0 /100 WBCS (0.0-0.0); Neutrophils # (A) 2.08 X 10*3/uL (1.80-7.70); Platelet Count 316 X 10*3/uL (140-440); RBC 5.14 X 10*6/uL (4.10-5.20); RDW 12.7 % (11.5-14.5); WBC 3.99 X 10*3/uL (4.50-10.00)
[2022-01-12 15:39] LABS: ALT 21 U/L (8-44); AST 26 U/L (13-35); African American GFR (CKD) 99.6 (60.0-200.0); Albumin 4.5 g/dL (3.8-4.9); Albumin/Globulin Ratio 1.67 (1.60-3.17); Alkaline Phosphatase 54 U/L (41-126); BUN/Creat Ratio 17.13 Ratio (12.00-20.00); Blood Urea Nitrogen 13.7 mg/dL (9.0-27.0); Calcium 9.1 mg/dL (8.7-10.3); Carbon Dioxide 22.7 mmol/L (20.0-27.5); Chloride 103 mmol/L (96-109); Chol/HDL Ratio 3.87 Ratio; Globulin 2.7 g/dL (1.6-3.3); Glucose 93 mg/dL (70-110); Iron 98 ug/dL (50-170); LDL Cholesterol,Calculated 131.9 mg/dL (0.0-131.0); Potassium 4.3 mmol/L (3.5-5.5); Sodium 139 mmol/L (135-145); Total Protein 7.2 g/dL (6.2-8.2)
== END | disposition home or self-care (01) ==
LOC: LABWHC1 08:56
PROVIDERS: ATTEND Nurse Practitioner Family
DX: Z00.00 Encounter for general adult medical examination without abnormal findings (principal); D50.9 Iron deficiency anemia, unspecified; E55.9 Vitamin D deficiency, unspecified; E53.8 Deficiency of other specified B group vitamins
CPT/HCPCS: 36415; 80053; 80061; 82306; 82607; 83540; 84443; 85025

== ENCOUNTER → 2022-02-02 | Outpatient (CLI) | payer BC ==
--- NOTE | 2022-02-02 11:16 | XR ---
EXAMINATION TYPE: XR shoulder complete LT DATE OF EXAM: 02/02/2022 COMPARISON: None available INDICATION: 51-year-old female, pain. No injury TECHNIQUE: Standard 4 views of the left shoulder FINDINGS: Tiny osteophytosis of the acromioclavicular joint. Irregularity of the coracoid process, possibly due to remote trauma or osteophytosis, please correlate clinically. Grossly unremarkable glenohumeral ar ticulation. No humeral head dislocation or significant subluxation. No definite acute fracture line identified. N o signs of rotator cuff calcific tendinitis. Maintained acromiohumeral distance. Suspected calcified granuloma in the left lung base. IMPRESSION: Mild degenerative changes of the acromioclavicular joint. No definite fracture or dislocation. Other findings as described above.
--- NOTE | 2022-02-02 11:20 | XR ---
EXAMINATION TYPE: XR elbow limited LT DATE OF EXAM: 02/02/2022 COMPARISON: None available INDICATION: Epicondylitis. Pain in posterolateral aspect with swelling in distal humerus proximal elb ow for one month TECHNIQUE: 2 views of the left elbow FINDINGS: Suspected 2 mm bone fragment superimposed on the medial aspect of the radiocapitellar articulation, o nly seen in the AP view, possibly representing a bone fragment versus artifact. Minimal enthesophytes of the lateral humeral epicondyle. No other significant bony or articular abnor mality identified. No sizable elbow joint effusion. IMPRESSION: As above.
== END | disposition home or self-care (01) ==
LOC: RADXRMAIN 10:35
PROVIDERS: ATTEND Nurse Practitioner Family
DX: M19.012 Primary osteoarthritis, left shoulder (principal); M77.02 Medial epicondylitis, left elbow

== ENCOUNTER → 2022-02-17 | Outpatient (CLI) | payer BC ==
--- NOTE | 2022-02-20 13:43 | MM ---
Reason for exam: screening (asymptomatic). Last mammogram was performed 1 year and 1 month ago. History: Patient has history of high-risk lesion on a previous biopsy at age 43. Family history of breast cancer in paternal aunt at age 50. Benign right breast needle localzation of both breasts, October 01, 2013. High risk right mammotome panel of the right breast, September 19, 2013. Took hormonal contraceptives for 2 years beginning at age 18. Taking progesterone for 1 year. Taking other hormone for 4 years. Physical Findings: A clinical breast exam by your physician is recommended on an annual basis and results should be correlated with mammographic findings. MG 3D Screening Mammo W/Cad Bilateral CC and MLO view(s) were taken. Prior study comparison: January 24, 2021, bilateral MG 3d screening mammo w/cad. December 23, 2019, bilateral MG 3d screening mammo w/cad. The breast tissue is heterogeneously dense. This may lower the sensitivity of mammography. There is chronic nodularity in the right breast. Stable grouped and regional calcifications 12 o'clock left breast. No significant changes when compared with prior studies. ASSESSMENT: Benign, BI-RAD 2 RECOMMENDATION: Routine screening mammogram of both breasts in 1 year.
== END | disposition home or self-care (01) ==
LOC: RADMAMWWP 07:15
PROVIDERS: ATTEND Obstetrics & Gynecology
DX: Z12.31 Encounter for screening mammogram for malignant neoplasm of breast (principal); Z80.3 Family history of malignant neoplasm of breast
CPT/HCPCS: 77063; 77067

== ENCOUNTER → 2022-10-18 | Outpatient (CLI) | payer BC ==
[2022-10-18 17:39] LABS: Estradiol 80.6 pg/mL; Follicle Stimulating Hormone 25.2 mIU/mL
== END | disposition home or self-care (01) ==
LOC: LABWHC1 10:29
PROVIDERS: ATTEND Obstetrics & Gynecology
DX: E34.50 Androgen insensitivity syndrome, unspecified (principal); N95.1 Menopausal and female climacteric states
CPT/HCPCS: 36415; 82670; 83001; 84144; 84403

== ENCOUNTER → 2022-12-12 | Outpatient (CLI) | payer BC ==
[2022-12-12 10:59] LABS: ALT 25 U/L (8-44); AST 27 U/L (13-35); African American GFR (CKD) 85.8 (60.0-200.0); Albumin 4.4 g/dL (3.8-4.9); Albumin/Globulin Ratio 1.91 (1.60-3.17); Alkaline Phosphatase 55 U/L (41-126); BUN/Creat Ratio 16.89 Ratio (12.00-20.00); Blood Urea Nitrogen 15.2 mg/dL (9.0-27.0); C Reactive Protein <0.30 mg/dL (0.00-0.80); Calcium 9.3 mg/dL (8.7-10.3); Carbon Dioxide 27.6 mmol/L (20.0-27.5); Chloride 106 mmol/L (96-109); Globulin 2.3 g/dL (1.6-3.3); Glucose 96 mg/dL (70-110); Iron 111 ug/dL (50-170); Potassium 4.4 mmol/L (3.5-5.5); Sodium 141 mmol/L (135-145); Total Protein 6.7 g/dL (6.2-8.2)
[2022-12-12 11:48] LABS: Rheumatoid Factor, Qnt <10 IU/mL (0-15)
[2022-12-12 15:10] LABS: Cyclic Citrull Pep IgG Unit <0.5 U/mL; Cyclic Citrullinated Pep IgG NEGATIVE (NEGATIVE)
[2022-12-13 12:22] LABS: HLA B27 NEGATIVE
== END | disposition home or self-care (01) ==
LOC: LABWHC1 07:48
PROVIDERS: ATTEND Nurse Practitioner Family
DX: M25.50 Pain in unspecified joint (principal); M54.50 Low back pain, unspecified; R42 Dizziness and giddiness; R31.29 Other microscopic hematuria
CPT/HCPCS: 36415; 80053; 82607; 82746; 83036; 83540; 83735; 84439; 84443; 84481; 85652; 86038; 86140; 86200; 86431; 86812

== ENCOUNTER → 2023-01-31 | Outpatient (CLI) | payer BC ==
[2023-01-31 16:24] LABS: Chol/HDL Ratio 3.96 Ratio; LDL Cholesterol,Calculated 138.9 mg/dL (0.0-131.0)
== END | disposition home or self-care (01) ==
LOC: LABWHC1 10:02
PROVIDERS: ATTEND Physician Assistant Medical
DX: Z13.220 Encounter for screening for lipoid disorders (principal)
CPT/HCPCS: 36415; 80061

== ENCOUNTER → 2023-02-20 | Outpatient (CLI) | payer BC ==
--- NOTE | 2023-02-21 14:50 | MM ---
Reason for Exam: Screening (asymptomatic). Last screening mammogram was performed 12 month(s) ago. Patient History: Menarche at age 13. First Full-Term at age 22. Left ovary removed at age 14. Perimenopausal. Patient used Progesterone for 1 year. Hormonal Contraceptives for 2 years from age 18 until age 20. Currently using Unspecified Hormone, starting at age 44. 10/01/2013, Bilateral Benign Excisional Biopsy. 09/19/2013, High risk Core Biopsy on the right side. Paternal aunt had breast cancer, age 50. Risk Values: Jenny 5 year model risk: 1.4%. NCI Lifetime model risk: 11.7%. Prior Study Comparison: 12/23/2019 Bilateral Screening Mammogram, [facility]. 01/24/2021 Bilateral Screening Mammogram, [facility]. 02/17/2022 Bilateral Screening Mammogram, [facility]. Tissue Density: The breast tissue is heterogeneously dense. This may lower the sensitivity of mammography. Findings: Analyzed By CAD. Stable appearing right breast cyst. There is no suspicious group of microcalcifications or new suspicious mass in either breast. Overall Assessment: Benign, BI-RAD 2 Management: Screening Mammogram of both breasts in 1 year. A clinical breast exam by your physician is recommended on an annual basis and results should be correlated with mammographic findings. [facility] will attempt to contact patient to return for supplemental views and ultrasound if indicated. Electronically signed and approved by: Robson Joseph DO
== END | disposition home or self-care (01) ==
LOC: RADMAMWWP 16:27
PROVIDERS: ATTEND Obstetrics & Gynecology
DX: Z12.31 Encounter for screening mammogram for malignant neoplasm of breast (principal); Z80.3 Family history of malignant neoplasm of breast
CPT/HCPCS: 77063; 77067

== ENCOUNTER → 2023-02-22 | Outpatient (CLI) | payer BC ==
--- NOTE | 2023-02-22 14:41 | CT ---
EXAMINATION TYPE: CT urogram wo/w con DATE OF EXAM: 02/22/2023 COMPARISON: 10/03/2021 HISTORY: KIDNEY STONES CT DLP: 1381.9 mGycm CONTRAST: Performed and with IV Contrast, patient injected with 100 mL of Isovue 300. CT Urography was performed with unenhanced followed by enhanced images of the kidneys, ureters and ur inary bladder. Delayed images were obtained. 3d reconstruction was performed at a separate work sta tion. FINDINGS: KIDNEYS/BLADDER: No hydronephrosis. No nephrolithiasis. Simple cyst midpole left kidney measures 4. 6 cm. Additional smaller simple cysts noted throughout the left kidney. The right kidney demonstrates approximately 3 simple cysts the largest within the mid pole measures 1.4 cm. Urinary bladder grossl y unremarkable. LUNG BASES-: No visible nodule. No infiltrate. LIVER/GB: No calcified gallstones. No space occupying hepatic lesion. Biliary tree is of normal ca liber. PANCREAS: No inflammation. No distinct mass. SPLEEN: No splenic enlargement. No lesion seen. ADRENALS: No nodule. No thickening. BOWEL: Normal appendix. Normal bowel caliber. No inflammation. GENITAL ORGANS: No gross abnormality. LYMPH NODES: No greater than 1cm abdominal or pelvic lymph nodes are appreciated. AORTA: No significant abnormality. OSSEOUS STRUCTURES: No significant abnormality is seen. OTHER: No significant additional abnormality is seen. IMPRESSION: 1. Simple renal cysts. No evidence for hydronephrosis or nephrolithiasis.
== END | disposition home or self-care (01) ==
LOC: RADCTMAIN 13:39
PROVIDERS: ATTEND Urology
DX: N28.1 Cyst of kidney, acquired (principal)
CPT/HCPCS: 74178; 74400; Q9967

== ENCOUNTER 2024-01-15 00:45 | Emergency (ER) | payer BC ==
[2024-01-15 00:55] VITALS: TEMP 98.3
[2024-01-15] MEDS: HYDROmorphone 0.5 MG/0.5 ML SYRINGE IVP STA (01:08)
[2024-01-15] MEDS: ONDANSETRON 4 MG/2 ML VIAL IVP STA (01:11)
[2024-01-15] MEDS: KETOROLAC 15 MG/ML 1 ML VIAL IVP STA (01:12)
[2024-01-15 01:39] LABS: ALT 19 U/L (4-34); AST 25 U/L (14-36); African American GFR (CKD) >90 (>60 ml/min/1.73 sqM); Albumin 4.4 g/dL (3.5-5.0); Alkaline Phosphatase 82 U/L (38-126); Amylase 79 U/L (30-110); Anion Gap 10 mmol/L; Blood Urea Nitrogen 14 mg/dL (7-17); Carbon Dioxide 23 mmol/L (22-30); Chloride 107 mmol/L (98-107); Glucose 101 mg/dL (74-99); Lipase 196 U/L (23-300); Non-African American GFR(CKD) >90 (>60 ml/min/1.73 sqM); Potassium 3.7 mmol/L (3.5-5.1); Sodium 140 mmol/L (137-145); Total Bilirubin 0.4 mg/dL (0.2-1.3)
[2024-01-15] MEDS: HYDROmorphone 1 MG/ML 1 ML SYRINGE IVP STA (01:59)
[2024-01-15 02:04] LABS: Basophils % (A) 1 %; Eosinophils # (A) 0.2 k/uL (0-0.7); Eosinophils % (A) 3 %; HCT 45.9 % (34.0-46.0); HGB 15.6 gm/dL (11.4-16.0); Lymphocytes # (A) 1.7 k/uL (1.0-4.8); Lymphocytes % (A) 25 %; MCV 91.2 fL (80.0-100.0); Mean Platelet Volume 8.6; Monocytes # (A) 0.5 k/uL (0-1.0); Monocytes % (A) 7 %; Neutrophils # (A) 4.1 k/uL (1.3-7.7); Neutrophils % (A) 63 %; Platelet Count 285 k/uL (150-450); RBC 5.04 m/uL (3.80-5.40); RDW 12.9 % (11.5-15.5); WBC 6.5 k/uL (3.8-10.6)
[2024-01-15 02:05] VITALS: RESP 18
--- NOTE | 2024-01-15 02:25 | CT ---
EXAM: CT Abdomen and Pelvis Without Intravenous Contrast CLINICAL HISTORY: Right flank pain. TECHNIQUE: Axial computed tomography images of the abdomen and pelvis without intravenous contrast. CTDI is 9.1 mGy and DLP is 550.3 mGy-cm. This CT exam was performed using one or more of the following dose reduction techniques: automated exposure control, adjustment of the mA and/or kV according to patient size, and/or use of iterative reconstruction technique. COMPARISON: No relevant prior studies available. FINDINGS: ABDOMEN: Liver: Unremarkable. Gallbladder and bile ducts: Unremarkable. No calcified stones. No ductal dilation. Pancreas: Unremarkable. No ductal dilation. Spleen: Unremarkable. No splenomegaly. Adrenals: Unremarkable. No mass. Kidneys and ureters: 2 very small nonobstructing calculi in the right kidney. Small nonobstructing calculus in the left kidney. No hydronephrosis. No evidence of ureteral calculus. Stomach and bowel: Unremarkable. No obstruction. No mucosal thickening. PELVIS: Appendix: No findings to suggest acute appendicitis. Bladder: Unremarkable. No stones. ABDOMEN and PELVIS: Intraperitoneal space: Unremarkable. No free air. No significant fluid collection. Bones/joints: No acute findings. Soft tissues: Small umbilical hernia containing fat.. Vasculature: Unremarkable. No abdominal aortic aneurysm. Lymph nodes: Unremarkable. No enlarged lymph nodes. IMPRESSION: No acute findings in the abdomen or pelvis. Very small nonobstructing renal calculi bilaterally. No hydronephrosis or ureteral calculus.
[2024-01-15] MEDS: SODIUM CHLORIDE 0.9% 500 ML 500 ML IV STA (03:08)
[2024-01-15 03:50] LABS: Amorphous Sediment,Urine Occasional /hpf; Appearance,Urine Cloudy (Clear); Bilirubin,Urine Negative (Negative); Blood,Urine Negative (Negative); Color,Urine Colorless; Glucose,Urine (UA) Negative (Negative); Ketones,Urine Negative (Negative); Leukocyte Esterase,Urine Small (Negative); Mucus,Urine Rare /hpf; Nitrite,Urine Negative (Negative); PH, Urine 7.5 (5.0-8.0); Protein,Urine Negative (Negative); RBC,Urine 1 /hpf (0-5); Specific Gravity,Urine 1.012 (1.001-1.035); Squamous Epithelial Cell,Urine 3 /hpf (0-4); Urobilinogen,Urine <2.0 mg/dL (<2.0); WBC,Urine 4 /hpf (0-5)
--- NOTE | 2024-01-15 04:23 | ED ---
General Adult HPI - General Chief complaint: Urogenital Stated complaint: back pain Time Seen by Provider: 01/15/24 00:53 Source: patient Mode of arrival: wheelchair Limitations: no limitations - History of Present Illness Initial comments: This patient is a 53-year-old woman who presents to have evaluation for what she is suspects is kidney stone or infection. Patient states that for the past couple of days she has been experiencing more frequent urination and now she is also having some pain to the right flank. She has not noted fever or chills. No abdominal pain. No change in bowel movements. No nausea or vomiting. -: days(s) Location: right (flank) Radiation: non-radiation Quality: aching Consistency: constant Improves with: none Worsens with: none Associated Symptoms: other (frequency) Treatments Prior to Arrival: none - Related Data Home Medications Medication Instructions Recorded Confirmed Cyanocobalamin [Vitamin B-12] 1,000 mcg PO DAILY 03/11/17 08/06/17 Testosteron Implant Supplement 1 tab PO DAILY 08/01/17 08/06/17 Testosterone Pellet Implant 1 dose SQ Q120D 08/01/17 08/06/17 Previous Rx's Medication Instructions Recorded HYDROcodone/APAP 5-325MG [Pritchett 1 tab PO Q4HR PRN 3 Days #18 tab 01/15/24 5-325] Allergies Allergy/AdvReac Type Severity Reaction Status Date / Time adhesive tape Allergy blisters Verified 01/15/24 00:49 skin, states "can tolerate paper tape." propoxyphene napsylate Allergy Rash/Hives Verified 01/15/24 00:49 [From Jean] Review of Systems ROS Statement: Those systems with pertinent positive or pertinent negative responses have been documented in the HPI. ROS Other: All systems not noted in ROS Statement are negative. Constitutional: Denies: fever, chills Respiratory: Denies: cough, dyspnea Cardiovascular: Denies: chest pain, palpitations Gastrointestinal: Reports: as per HPI, abdominal pain (flank pain). Denies: nausea, vomiting, diarrhea, constipation, melena, hematochezia Genitourinary: Reports: frequency. Denies: dysuria, hematuria Musculoskeletal: Denies: back pain Skin: Denies: rash Neurological: Denies: headache, weakness Past Medical History Past Medical History: Pulmonary Embolus (PE) Additional Past Medical History / Comment(s): migraines, hiatal hernia, hx ulcer, dx round worm 10/2014, diarrhea, polycystic kidney disease History of Any Multi-Drug Resistant Organisms: MRSA Date of last positivie culture/infection: 11/2012 MDRO Source:: leg Past Surgical History: Hernia Repair Additional Past Surgical History / Comment(s): admoninoplasty, left oophorectomy and salpingectomy, Past Anesthesia/Blood Transfusion Reactions: Family Hisory of Malignant Hyperthermia, Motion Sickness Additional Past Anesthesia/Blood Transfusion Reaction / Comment(s): father- malignant hyperthermia. pt states she was tested years ago in another state but test was not conclusive. Past Psychological History: No Psychological Hx Reported Smoking Status: Never smoker Past Alcohol Use History: Occasional Past Drug Use History: None Reported - Past Family History Father Family Medical History: Cancer Additional Family Medical History / Comment(s): cardiac cath with stents,skin Mother Additional Family Medical History / Comment(s): ovarian cancer with hyst Sister(s) Family Medical History: No Reported History General Exam Limitations: no limitations General appearance: alert, in no apparent distress Head exam: Present: atraumatic, normocephalic Eye exam: Present: normal appearance. Absent: scleral icterus, conjunctival injection ENT exam: Present: normal oropharynx Neck exam: Present: normal inspection Respiratory exam: Present: normal lung sounds bilaterally. Absent: respiratory distress, wheezes, rales, rhonchi, stridor Cardiovascular Exam: Present: regular rate, normal rhythm, normal heart sounds. Absent: systolic murmur, diastolic murmur, rubs, gallop GI/Abdominal exam: Present: soft. Absent: distended, tenderness, guarding, rebound, rigid, mass, pulsatile mass Back exam: Present: normal inspection, CVA tenderness (R). Absent: CVA tenderness (L) Neurological exam: Present: alert Skin exam: Present: warm, dry, intact, normal color. Absent: rash Course Vital Signs 01/15/24 01/15/24 01/15/24 00:46 02:00 04:55 Temperature 98.3 F Pulse Rate 113 H 90 83 Respiratory 20 18 18 Rate Blood Pressure 126/73 112/76 114/73 O2 Sat by Pulse 100 97 98 Oximetry Medical Decision Making - Medical Decision Making The patient had CT scan of the abdomen and pelvis which I interpreted as negative for acute hydronephrosis or hydroureter. No bowel obstruction or free air. Was pt. sent in by a medical professional or institution (, FAUSTO, TEAM SUPERVISOR, urgent care, hospital, or shelter...) When possible be specific @ -[No] Did you speak to anyone other than the patient for history (EMS, parent, family, police, friend...)? What history was obtained from this source @ -[No] Did you review nursing and triage notes (agree or disagree)? Why? @ -[I reviewed and agree with nursing and triage notes] Were old charts reviewed (outside hosp., previous admission, EMS record, old EKG, old radiological studies, urgent care reports/EKG's, shelter records)? Report findings @ -[No old charts were reviewed] Differential Diagnosis (chest pain, altered mental status, abdominal pain women, abdominal pain men, vaginal bleeding, weakness, fever, dyspnea, syncope, headache, dizziness, GI bleed, back pain, seizure, CVA, palpatations, mental health, musculoskeletal)? @ -[Differential Abdominal Pain Women: Appendicitis, Cholecystitis, diverticulosis, ischemic bowel, pancreatitis, hepa titis, UTI, gastroenteritis, AAA, incarcerated hernia, bowel obstruction, constipation, inflammatory bowel, hepatitis, peptic ulcer disease, splenic infarction, perforated viscus, vulvitis, ovarian torsion, PID, kidney stone, placenta abruption, this is not meant to be an all-inclusive list EKG interpreted by me (3pts min.). @ -[As above] X-rays interpreted by me (1pt min.). @ -[None done] CT interpreted by me (1pt min.). @ -I interpreted as above U/S interpreted by me (1pt. min.). @ -[None done] What testing was considered but not performed or refused? (CT, X-rays, U/S, labs)? Why? @ -[None] What meds were considered but not given or refused? Why? @ -[None] Did you discuss the management of the patient with other professionals (professionals i.e. FAUSTO Mejia, TEAM SUPERVISOR, lab, RT, psych nurse, mental health social worker, cardiac specialist, teacher, founder chairman and chief creative officer, behavioral health case manager)? Give summary @ -[No] Was smoking cessation discussed for >3mins.? @ -[No] Was critical care preformed (if so, how long)? @ -[No] Were there social determinants of health that impacted care today? How? (Homelessness, low income, unemployed, alcoholism, drug addiction, transportation, low edu. Level, literacy, decrease access to med. care, care home, rehab)? @ -[No] Was there de-escalation of care discussed even if they declined (Discuss DNR or withdrawal of care, Hospice)? DNR status @ -[No] What co-morbidities impacted this encounter? (DM, HTN, Smoking, COPD, CAD, Cancer, CVA, ARF, Chemo, Hep., AIDS, mental health diagnosis, sleep apnea, morbid obesity)? @ -[None] Was patient admitted / discharged? Hospital course, mention meds given and route, prescriptions, significant lab abnormalities, going to OR and other pertinent info. @ -[Patient is a 53-year-old woman here with flank pain that has improved with treatment. The workup does not reveal exact etiology and discussed with patient that she may require further follow-up should the pain recur. Discussed appropriate further care as well as return parameters. Undiagnosed new problem with uncertain prognosis? @ -[No] Drug Therapy requiring intensive monitoring for toxicity (Heparin, Nitro, Insulin, Cardizem)? @ -[No] Were any procedures done? @ -[No] Diagnosis/symptom? @ -[Acute flank pain Acute, or Chronic, or Acute on Chronic? @ -[Acute Uncomplicated (without systemic symptoms) or Complicated (systemic symptoms)? @ -[Uncomplicated Side effects of treatment? @ -[No] Exacerbation, Progression, or Severe Exacerbation? @ -[No] Poses a threat to life or bodily function? How? (Chest pain, [place], [place], pneumonia, PE, COPD, DKA, ARF, appy, cholecystitis, CVA, Diverticulitis, Homicidal, Suicidal, threat to staff... and all critical care pts) @ -[No] - Lab Data Result diagrams: 01/15/24 01:15 01/15/24 01:15 Lab Results 01/15/24 01/15/24 01/15/24 Range/Units 01:15 01:15 01:15 WBC 6.5 (3.8-10.6) k/uL RBC 5.04 (3.80-5.40) m/uL Hgb 15.6 (11.4-16.0) gm/dL Hct 45.9 (34.0-46.0) % MCV 91.2 (80.0-100.0) fL MCH 31.0 (25.0-35.0) pg MCHC 34.0 (31.0-37.0) g/dL RDW 12.9 (11.5-15.5) % Plt Count 285 (150-450) k/uL MPV 8.6 Neutrophils % 63 % Lymphocytes % 25 % Monocytes % 7 % Eosinophils % 3 % Basophils % 1 % Neutrophils # 4.1 (1.3-7.7) k/uL Lymphocytes # 1.7 (1.0-4.8) k/uL Monocytes # 0.5 (0-1.0) k/uL Eosinophils # 0.2 (0-0.7) k/uL Basophils # 0.0 (0-0.2) k/uL Sodium (137-145) mmol/L Potassium (3.5-5.1) mmol/L Chloride (98-107) mmol/L Carbon Dioxide (22-30) mmol/L Anion Gap mmol/L BUN (7-17) mg/dL Creatinine (0.52-1.04) mg/dL Est GFR (CKD-EPI)AfAm (>60 ml/min/1.73 sqM) Est GFR (CKD-EPI)NonAf (>60 ml/min/1.73 sqM) Glucose (74-99) mg/dL Calcium (8.4-10.2) mg/dL Total Bilirubin (0.2-1.3) mg/dL AST (14-36) U/L ALT (4-34) U/L Alkaline Phosphatase (38-126) U/L Total Protein (6.3-8.2) g/dL Albumin (3.5-5.0) g/dL Amylase (30-110) U/L Lipase (23-300) U/L Urine Color Colorless Urine Appearance Cloudy H (Clear) Urine pH 7.5 (5.0-8.0) Ur Specific [place] 1.012 (1.001-1.035) Urine Protein Negative (Negative) Urine Glucose (UA) Negative (Negative) Urine Ketones Negative (Negative) Urine Blood Negative (Negative) Urine Nitrite Negative (Negative) Urine Bilirubin Negative (Negative) Urine Urobilinogen <2.0 (<2.0) mg/dL Ur Leukocyte Esterase Small H (Negative) Urine RBC 1 (0-5) /hpf Urine WBC 4 (0-5) /hpf Ur Squamous Epith Cells 3 (0-4) /hpf Amorphous Sediment Occasional H (None) /hpf Urine Mucus Rare H (None) /hpf Urine HCG, Qual Not Detected (Not Detectd) 01/15/24 Range/Units 01:15 WBC (3.8-10.6) k/uL RBC (3.80-5.40) m/uL Hgb (11.4-16.0) gm/dL Hct (34.0-46.0) % MCV (80.0-100.0) fL MCH (25.0-35.0) pg MCHC (31.0-37.0) g/dL RDW (11.5-15.5) % Plt Count (150-450) k/uL MPV Neutrophils % % Lymphocytes % % Monocytes % % Eosinophils % % Basophils % % Neutrophils # (1.3-7.7) k/uL Lymphocytes # (1.0-4.8) k/uL Monocytes # (0-1.0) k/uL Eosinophils # (0-0.7) k/uL Basophils # (0-0.2) k/uL Sodium 140 (137-145) mmol/L Potassium 3.7 (3.5-5.1) mmol/L Chloride 107 (98-107) mmol/L Carbon Dioxide 23 (22-30) mmol/L Anion Gap 10 mmol/L BUN 14 (7-17) mg/dL Creatinine 0.69 (0.52-1.04) mg/dL Est GFR (CKD-EPI)AfAm >90 (>60 ml/min/1.73 sqM) Est GFR (CKD-EPI)NonAf >90 (>60 ml/min/1.73 sqM) Glucose 101 H (74-99) mg/dL Calcium 10.0 (8.4-10.2) mg/dL Total Bilirubin 0.4 (0.2-1.3) mg/dL AST 25 (14-36) U/L ALT 19 (4-34) U/L Alkaline Phosphatase 82 (38-126) U/L Total Protein 7.0 (6.3-8.2) g/dL Albumin 4.4 (3.5-5.0) g/dL Amylase 79 (30-110) U/L Lipase 196 (23-300) U/L Urine Color Urine Appearance (Clear) Urine pH (5.0-8.0) Ur Specific [place] (1.001-1.035) Urine Protein (Negative) Urine Glucose (UA) (Negative) Urine Ketones (Negative) Urine Blood (Negative) Urine Nitrite (Negative) Urine Bilirubin (Negative) Urine Urobilinogen (<2.0) mg/dL Ur Leukocyte Esterase (Negative) Urine RBC (0-5) /hpf Urine WBC (0-5) /hpf Ur Squamous Epith Cells (0-4) /hpf Amorphous Sediment (None) /hpf Urine Mucus (None) /hpf Urine HCG, Qual (Not Detectd) Disposition Clinical Impression: Flank pain Disposition: HOME SELF-CARE Condition: Good Instructions (If sedation given, give patient instructions): Flank Pain (ED) Additional Instructions: As we discussed, if the pain does not resolve follow-up to have an MRI of the flank and kidney area. Return here if the symptoms worsen or new symptoms develop Prescriptions: HYDROcodone/APAP 5-325MG [P[place]chett 5-325] 1 tab PO Q4HR PRN 3 Days #18 tab PRN Reason: Pain Is patient prescribed a controlled substance at d/c from ED?: Yes When asked, does pt state using other controlled substances?: No If prescribed controlled substance>3 days was MAPS reviewed?: Prescribed <3 Days If opioid is for acute pain is fill amount 7 days or less?: Yes If Rx opioid, was Start Talking consent form obtained?: Yes Referrals: Darryn Lopez MD [Primary Care Provider] - 1-2 days
[2024-01-15 05:12] VITALS: BP 114/73; PULSE 83
== END 2024-01-15 04:56 | disposition home or self-care (01) ==
LOC: EC 00:45
DX: R10.9 Unspecified abdominal pain (principal); Z88.8 Allergy status to other drugs, medicaments and biological substances
CPT/HCPCS: 99284; 96374; 96375 ×2; 96376; 36415; 80053; 82150; 83690; 85025; 81001; 81025; 74176; J2405; J1170 ×2; J1885

== ENCOUNTER → 2024-01-31 | Outpatient (CLI) | payer BC ==
--- NOTE | 2024-02-01 07:12 | MR ---
EXAMINATION TYPE: MR lumbar spine wo con DATE OF EXAM: 01/31/2024 7:39 AM CLINICAL INDICATION:Female, 53 years old with history of M54.50 low back pain; PHH, Lower Back Pain t hat travels to the [place] x 3 months COMPARISON: None TECHNIQUE: Multiplanar, multisequential MR imaging of the lumbar spine performed per facility protocol. IV Contrast: cc . (None if empty) FINDINGS: Alignment: The lumbar vertebral bodies have preserved heights and alignment. Cord: The conus medullaris terminates in normal position, mid L1. No conus enlargement or signal abno rmality. No evidence of pathologic intracanalicular process. Tiny perineural cysts suggested at the S 2 level. Bones/Discs: No evidence of marrow edema or T1 dark lesion. Intervertebral disc signal is maintained. T12-L1: No significant disc pathology. No evidence of significant spinal canal stenosis or neural for aminal stenosis. L1-L2: No significant disc pathology. No evidence of significant spinal canal stenosis or neural fora ashly stenosis. L2-L3: No significant disc pathology. Mild bilateral facet arthrosis. No significant canal or foramin al stenosis. L3-L4: Minimal circumferential disc bulge. Mild facet arthrosis. No significant canal stenosis. There is minimal bilateral neural foraminal stenosis inferiorly. L4-L5: Minimal circumferential disc bulge. Mild facet arthrosis. Mild canal and neural foraminal sten osis. L5-S1: Minimal circumferential disc bulge. Mild facet arthrosis. No significant canal or foraminal st enosis. Other findings: A T2 hyperintense and T1 hypointense circumscribed structure in the posterior left [place] compatible with a cyst, measuring 3.8 x 2.7 cm. Some aortic atherosclerotic disease is suggeste d, not well evaluated by this exam. There is no evidence of AAA. IMPRESSION: 1. Mild multilevel lumbar spondylosis, detailed level by level above. 2. No evidence of acute compression fracture or other acute abnormality. 3. Left renal cyst.
== END | disposition home or self-care (01) ==
LOC: RADMRIMAIN 06:51
PROVIDERS: ATTEND Family Medicine
DX: M47.816 Spondylosis without myelopathy or radiculopathy, lumbar region (principal); N28.1 Cyst of kidney, acquired
CPT/HCPCS: 72148

== ENCOUNTER → 2024-02-25 | Outpatient (CLI) | payer BC ==
--- NOTE | 2024-02-28 12:53 | MM ---
Reason for Exam: Screening (asymptomatic). Last screening mammogram was performed 12 month(s) ago. Patient History: Menarche at age 13. First Full-Term at age 22. Left ovary removed at age 14. Postmenopausal. Patient used Progesterone for 1 year. Hormonal Contraceptives for 2 years from age 18 until age 20. Currently using Unspecified Hormone, starting at age 44. 10/01/2013, Bilateral Benign Excisional Biopsy. 09/19/2013, High risk Core Biopsy on the right side. Paternal aunt had breast cancer, age 50. Last menstrual period: 02/17/2016 Risk Values: Jenny 5 year model risk: 1.4%. NCI Lifetime model risk: 11.5%. Prior Study Comparison: 01/24/2021 Bilateral Screening Mammogram, [facility]. 02/17/2022 Bilateral Screening Mammogram, [facility]. 02/20/2023 Bilateral MG 3D screening mammo w/cad, [facility]. Tissue Density: There are scattered areas of fibroglandular density. Findings: Analyzed By CAD. Right breast: Stable masslike areas in the right breast dating back to 2019. There is no suspicious group of microcalcifications or new suspicious mass. Left breast: There is no suspicious group of microcalcifications or new suspicious mass. Overall Assessment: Benign, BI-RAD 2 Management: Screening Mammogram of both breasts in [address] [facility] will attempt to contact patient to return for supplemental views and ultrasound if indicated. Patient should continue monthly self-breast exams. A clinical breast exam by your physician is recommended on an annual basis. This exam should not preclude additional follow-up of suspicious palpable abnormalities. Note on Jenny scores and lifetime risk: 1. A Jenny score greater than 3% is considered moderate risk. If this is the case, consider specialist referral to assess eligibility for a risk reducing agent. 2. If overall lifetime risk for the development of breast cancer is 20% or higher, the patient may qualify for future screening with alternating mammogram and breast MRI. Electronically signed and approved by: Robson Joseph DO
== END | disposition home or self-care (01) ==
LOC: RADMAMWWP 16:14
PROVIDERS: ATTEND Family Medicine
DX: Z12.31 Encounter for screening mammogram for malignant neoplasm of breast (principal); Z78.0 Asymptomatic menopausal state; Z80.3 Family history of malignant neoplasm of breast
CPT/HCPCS: 77063; 77067

== ENCOUNTER → 2024-11-26 | Outpatient (CLI) | payer BC ==
[2024-11-26 10:46] LABS: Basophils % (A) 1 %; Eosinophils # (A) 0.2 k/uL (0-0.7); Eosinophils % (A) 4 %; HCT 47.8 % (34.0-46.0); HGB 15.7 gm/dL (11.4-16.0); Lymphocytes # (A) 1.1 k/uL (1.0-4.8); Lymphocytes % (A) 30 %; MCH 30.1 pg (25.0-35.0); MCHC 32.7 g/dL (31.0-37.0); MCV 92.1 fL (80.0-100.0); Mean Platelet Volume 7.6; Monocytes # (A) 0.2 k/uL (0-1.0); Monocytes % (A) 6 %; Neutrophils % (A) 57 %; Platelet Count 285 k/uL (150-450); RBC 5.19 m/uL (3.80-5.40); RDW 12.9 % (11.5-15.5); WBC 3.5 k/uL (3.8-10.6)
[2024-11-26 17:03] LABS: ALT 15 U/L (8-44); AST 19 U/L (13-35); Albumin 4.2 g/dL (3.8-4.9); Albumin/Globulin Ratio 1.68 Ratio (1.60-3.17); Alkaline Phosphatase 61 U/L (41-126); BUN/Creat Ratio 22.62 Ratio (12.00-20.00); Blood Urea Nitrogen 18.1 mg/dL (9.0-27.0); C Reactive Protein <0.30 mg/dL (0.00-0.80); C Reactive Protein, High Sens 0.752 mg/L (0.000-3.000); Carbon Dioxide 23.9 mmol/L (21.6-31.8); Chloride 103 mmol/L (96-109); Chol/HDL Ratio 3.93 Ratio; Globulin 2.5 g/dL (1.6-3.3); Glucose 84 mg/dL (70-110); LDL Cholesterol,Calculated 151.4 mg/dL (0.0-131.0); Potassium 4.3 mmol/L (3.5-5.5); Sodium 136 mmol/L (135-145); Total Bilirubin 0.3 mg/dL (0.3-1.2); Total Protein 6.7 g/dL (6.2-8.2)
[2024-11-26 17:07] LABS: Erythrocyte Sedimentation Rate 5 mm/Hr (0-30)
[2024-11-26 17:09] LABS: Protein, Total 6.8 g/dL (6.2-8.2)
[2024-11-26 22:14] LABS: Rheumatoid Factor, Qnt <15 IU/mL (0-15); T4, Free (Free Thyroxine) 1.13 ng/dL (0.80-1.80)
[2024-11-27 13:03] LABS: Free Kappa Lt Chain Qnt, Serum 1.78 mg/dL (0.33-1.94); Free Lambda Lt Chain Qnt, Seru 1.35 mg/dL (0.57-2.63)
[2024-11-28 10:22] LABS: Albumin 4.26 g/dL (3.80-4.90); Gamma Globulin 0.97 g/dL (0.70-1.50)
== END | disposition home or self-care (01) ==
LOC: LABWHC1 09:31
PROVIDERS: ATTEND Physician Assistant Medical
DX: Z00.01 Encounter for general adult medical examination with abnormal findings (principal); M79.629 Pain in unspecified upper arm; E78.5 Hyperlipidemia, unspecified; M05.50 Rheumatoid polyneuropathy with rheumatoid arthritis of unspecified site; L65.9 Nonscarring hair loss, unspecified
CPT/HCPCS: 36415; 80053; 80061; 83036; 83883; 84165; 84402; 84403; 84439; 84443; 84481; 85025; 85652; 86038; 86140; 86141; 86334; 86431

== ENCOUNTER → 2025-01-05 | Outpatient (CLI) | payer BC ==
--- NOTE | 2025-01-05 09:46 | CT ---
EXAMINATION TYPE: CT lumbar spine wo con DATE OF EXAM: 01/05/2025 9:13 AM COMPARISON: MRI lumbar spine January 31, 2024 CLINICAL INDICATION: Female, 54 years old with history of M54.16 RADICULOPATHY, LUMBAR REGION; [facility], TECHNIQUE: Unenhanced CT of the lumbar spine was performed. Bone and soft tissue window settings are submitted as well as coronal and sagittal reconstructions. CT DLP: 750 mGycm Automated exposure control for dose reduction was used. FINDINGS: There are 5 lumbar-type vertebra. Lumbar spine shows stable and satisfactory alignment. Vertebral bod y and disc space heights are within normal limits. Spinal canal preserved. No large disc herniation i s seen. Paraspinal muscle bulk is maintained. There is 3.4 cm thin-walled cyst posteriorly in the low er pole left kidney axial image 27 and has some posterior rim calcification incidentally noted. IMPRESSION: No acute findings are seen. No large disc herniation is evident. [facility], , 01/05/2025 9:43 AM
== END | disposition home or self-care (01) ==
LOC: RADCTMAIN 08:50
PROVIDERS: ATTEND Family Medicine
DX: M54.16 Radiculopathy, lumbar region (principal)
CPT/HCPCS: 72131

== ENCOUNTER → 2025-03-24 | Outpatient (CLI) | payer BC ==
--- NOTE | 2025-03-24 13:21 | MM ---
Reason for Exam: Screening (asymptomatic). Last mammogram was performed 1 year(s) and 1 month(s) ago. Patient History: Menarche at age 13. First Full-Term at age 22. Left ovary removed at age 14. Postmenopausal. Patient used Progesterone for 1 year. Hormonal Contraceptives for 2 years from age 18 until age 20. Currently using Unspecified Hormone, starting at age 44. 10/01/2013, Bilateral Benign Excisional Biopsy. 09/19/2013, High risk Core Biopsy on the right side. Paternal aunt had breast cancer, age 50. Risk Values: Jenny 5 year model risk: 1.5%. NCI Lifetime model risk: 11.1%. Prior Study Comparison: 02/17/2022 Bilateral Screening Mammogram, [facility]. 02/20/2023 Bilateral MG 3D screening mammo w/cad, [facility]. 02/25/2024 Bilateral MG 3D screening mammo w/cad, [facility]. Tissue Density: The breasts are heterogeneously dense, which may obscure small masses. Findings: Analyzed By CAD. There is a stable 13 mm circumscribed round mass in the outer aspect right breast. Biopsy clip in the right breast is again seen. There is no suspicious new group of microcalcifications or new suspicious mass in either breast. Overall Assessment: Benign, BI-RAD 2 Management: Screening Mammogram of both breasts in 1 year. . Patient should continue monthly self-breast exams. A clinical breast exam by your physician is recommended on an annual basis. This exam should not preclude additional follow-up of suspicious palpable abnormalities. Note on Jenny scores and lifetime risk: 1. A Jenny score greater than 3% is considered moderate risk. If this is the case, consider specialist referral to assess eligibility for a risk reducing agent. 2. If overall lifetime risk for the development of breast cancer is 20% or higher, the patient may qualify for future screening with alternating mammogram and breast MRI. [facility], , 03/24/2025 1:19 PM. Electronically signed and approved by: Darwin Yi M.D.
== END | disposition home or self-care (01) ==
LOC: RADMAMWWP 11:56
PROVIDERS: ATTEND Family Medicine
DX: Z12.31 Encounter for screening mammogram for malignant neoplasm of breast (principal); R92.333 Mammographic heterogeneous density, bilateral breasts; Z78.0 Asymptomatic menopausal state; Z80.3 Family history of malignant neoplasm of breast; Z92.0 Personal history of contraception
CPT/HCPCS: 77063; 77067